=== PATIENT | female | born 1985 | race Caucasian/White ===

== ENCOUNTER → 2018-08-29 | Outpatient (CLI) | payer OTHER ==
[~2018-08-29] MED LIST: ADDE30CA3 PO; ALL10TAB28 PO; AMET1TAB4 PO; AMOX500C PO; CALCTAB6 PO; COQ1100C PO; FERR325T3 PO; METF500T13 PO; MONT10TA2 PO; MULT1TAB18 PO; OMEP20TA9 PO; PARO20TA4 PO; PRED20TA PO; PYRI100T2 PO; STOO100C PO; VITA100018 PO; VITA200016 PO
== END ==
LOC: M LAB 12:29
PROVIDERS: ATTEND Internal Medicine Gastroenterology
DX: D50.9 Iron deficiency anemia, unspecified (principal)

== ENCOUNTER 2018-10-21 10:35 | Day surgery (SDC) | payer OTHER ==
[~2018-10-21] VITALS: Ht 175.3 cm; Wt 93.3 kg
[~2018-10-21 10:35] MED LIST changes: +COQ150CH PO; +MM S100C PO; +MULT1TAB8 PO; +NS 1,000 ML IV ONE; -STOO100C PO
[2018-10-21] MEDS ORDERED: fentaNYL 100 MCG/2 ML INJECTION (J3010) As Ordered ONE (11:44)
[2018-10-21] MEDS ORDERED: LIDOCAINE 2% INJ 100 MG/5 ML SDV (FOR ANES.) As Ordered ONE (11:44)
[2018-10-21] MEDS ORDERED: PROPOFOL 500 MG/50 ML VIAL As Ordered ONE (11:44)
--- NOTE | 2018-10-21 11:57 | ROOR ---
Patient Name: Shey Skinner Procedure Date: 10/21/2018 11:41 AM Date of : 1985 Age: 32 Room: [facility] Gender: Female Note Status: Finalized Procedure: Upper GI endoscopy Indications: Iron deficiency anemia, Selective IgA deficiency Providers: Ezio CARRANZA MD Referring MD: Narcisa Conde Requesting Provider: Medicines: Monitored Anesthesia Care Complications: No immediate complications. Procedure: Pre-Anesthesia Assessment: - The heart rate, respiratory rate, oxygen saturations, blood pressure, adequacy of pulmonary ventilation, and response to care were monitored throughout the procedure. The Endoscope was introduced through the mouth, and advanced to the third part of duodenum. The upper GI endoscopy was accomplished without difficulty. The patient tolerated the procedure well. Findings: The esophagus was normal. The stomach was normal. The examined duodenum was normal. Biopsies for histology were taken with a cold forceps in the first portion of the duodenum, in the second portion of the duodenum and in the third portion of the duodenum for evaluation of celiac disease. Impression: - Normal esophagus. - Normal stomach. - Normal examined duodenum. - Biopsies were taken with a cold forceps for evaluation of celiac disease. Recommendation: - Await pathology results. - Telephone endoscopist for pathology results in 2 weeks. Ezio Carranza MD Ezio CARRANZA MD 10/21/2018 11:56:32 AM Electronically signed by Ezio CARRANZA MD Number of Addenda: 0 Note Initiated On: 10/21/2018 11:41 AM Estimated Blood Loss: Estimated blood loss: none.
--- NOTE | 2018-10-21 12:23 | ROOR ---
Patient Name: Shey Skinner Procedure Date: 10/21/2018 11:42 AM Date of : 1985 Age: 32 Room: [facility] Gender: Female Note Status: Finalized Procedure: Colonoscopy Indications: Iron deficiency anemia Providers: Ezio CARRANZA MD Referring MD: Narcisa Conde Requesting Provider: Medicines: Monitored Anesthesia Care Complications: No immediate complications. Procedure: Pre-Anesthesia Assessment: - The heart rate, respiratory rate, oxygen saturations, blood pressure, adequacy of pulmonary ventilation, and response to care were monitored throughout the procedure. The Colonoscope was introduced through the anus and advanced to 10 cm into the ileum. Findings: The perianal and digital rectal examinations were normal. A 5 mm polyp was found in the hepatic flexure. The polyp was sessile. The polyp was removed with a cold snare. Resection and retrieval were complete. Three sessile polyps were found in the sigmoid colon. The polyps were 3 to 4 mm in size. These polyps were removed with a cold snare. Resection and retrieval were complete. Retroflexion in the right colon was performed. The exam was otherwise normal throughout the examined colon. The terminal ileum appeared normal. Impression: - One 5 mm polyp at the hepatic flexure, removed with a cold snare. Resected and retrieved. - Three 3 to 4 mm polyps in the sigmoid colon, removed with a cold snare. Resected and retrieved. - Small internal hemorrhoids. - The colon is otherwise normal. - The terminal ileum was normal. Recommendation: - Await pathology results. - Telephone endoscopist for pathology results in 2 weeks. - If the pathology report reveals adenomatous tissue, then repeat the colonoscopy for surveillance in 3 - 5 years. - Return to referring physician as previously scheduled. Ezio Carranza MD Ezio CARRANZA MD 10/21/2018 12:23:17 PM Electronically signed by Ezio CARRANZA MD Number of Addenda: 0 Note Initiated On: 10/21/2018 11:42 AM Estimated Blood Loss: Estimated blood loss: none.
[2018-10-21 12:40] VITALS: BP 134/69
== END 2018-10-21 12:49 | disposition home or self-care (01) ==
LOC: M OPP 10:35
PROVIDERS: ATTEND Internal Medicine Gastroenterology
DX: D50.9 Iron deficiency anemia, unspecified (principal); D12.3 Benign neoplasm of transverse colon; D12.5 Benign neoplasm of sigmoid colon; D80.2 Selective deficiency of immunoglobulin A [IgA]; K62.5 Hemorrhage of anus and rectum; K64.8 Other hemorrhoids; F17.210 Nicotine dependence, cigarettes, uncomplicated; Z79.84 Long term (current) use of oral hypoglycemic drugs; Z79.899 Other long term (current) drug therapy; Z88.8 Allergy status to other drugs, medicaments and biological substances
CPT/HCPCS: 43239; 45385; 88305; J3010

== ENCOUNTER → 2019-04-11 | Outpatient (CLI) | payer OTHER ==
[~2019-04-11] MED LIST changes: -ALL10TAB28 PO; +ALL10TAB29 PO; -NS 1,000 ML IV ONE; -PYRI100T2 PO; +VITA100T82 PO
[2019-04-11 16:11] LABS: BASO % 0.4 % (0.0-1.0); EOS # 0.1 10^3/uL (0.0-0.5); EOS % 0.7 % (0.0-3.0); HEMATOCRIT 41.5 % (36.0-47.0); HEMOGLOBIN 13.7 g/dl (12.0-15.5); LYMPH # 2.8 10^3/uL (1.5-5.0); MEAN CORPUSCULAR HEMOGLOBIN 30.5 pg (27.0-33.0); MEAN CORPUSCULAR VOLUME 92.4 fl (80.0-96.0); MONO # 0.7 10^3/uL (0.0-0.8); MONO % 6.6 % (0.0-5.0); NEUTROPHILS % 65.5 % (36.0-66.0); PLATELET COUNT, AUTOMATED 301 10^3/uL (150-450); RED BLOOD COUNT 4.49 10^6/uL (4.00-5.40); WHITE BLOOD COUNT 10.7 10^3/uL (4.0-10.0)
[2019-04-11 17:33] LABS: CHLAMYDIA DNA AMPLIFICATION NEGATIVE (NEGATIVE); GC DNA AMPLIFICATION NEGATIVE (NEGATIVE)
[2019-04-14 10:22] LABS: HEPATITIS C VIRUS ABY INDEX 0.2 INDEX (<0.8); HIV 1&2 SCREEN CENTAUR NEGATIVE (NEGATIVE); RUBELLA IgG QUALITATIVE IMMUNE (IMMUNE)
== END ==
LOC: M PLALAB 12:09
PROVIDERS: ATTEND Specialist
DX: Z34.81 Encounter for supervision of other normal pregnancy, first trimester (principal)

== ENCOUNTER → 2019-06-07 | Outpatient (CLI) | payer OTHER ==
[~2019-06-07] MED LIST changes: -MONT10TA2 PO; +MONT10TA4 PO
--- NOTE | 2019-06-07 12:37 | REP ---
Obstetric ultrasound for anatomy: There is a single intrauterine gestation in a transverse lie with the head to the at right. There is movement and cardiac activity. The heart rate is 130 beats per minute. The placenta is anterior. There is no previa or abruptio. The placenta is grade 1. The amniotic fluid volume subjectively is normal. The cervix measures 3.1 cm. Gestational age by the ultrasound today is 18 weeks 3 days. The SHARRON is 11/05/2019. weight is 242 grams/0 pounds, 8 ounces. This is the 48 percentile for 18 weeks 3 days. The following anatomic structures are identified and are unremarkable: Cranium, choroid plexus, cavum septum pellucidum, cerebellum, nuchal fold, upper lip, cardiac right and left ventricular outflow tracts, diaphragm, stomach, cord insertion, three-vessel cord, kidneys, bladder, spine and upper lower extremities. Suboptimally demonstrated are the facial profile and the four-chamber view of the heart. A followup study dedicated to these structures might be considered. Otherwise, there are no anomalies. Electronically Signed by Brooks Quinonez MD 06/07/2019 12:28 P
== END ==
LOC: M WHC 09:11
PROVIDERS: ATTEND Advanced Practice Midwife
DX: Z34.82 Encounter for supervision of other normal pregnancy, second trimester (principal)

== ENCOUNTER → 2019-08-02 | Outpatient (REF) | payer OTHER ==
[2019-08-02 15:22] LABS: HEMATOCRIT 37.8 % (36.0-47.0); HEMOGLOBIN 12.7 g/dl (12.0-15.5); MEAN CORPUSCULAR HEMOGLOBIN 31.1 pg (27.0-33.0); MEAN CORPUSCULAR HGB CONC 33.6 g/dl (32.0-36.5); MEAN CORPUSCULAR VOLUME 92.6 fl (80.0-96.0); PLATELET COUNT, AUTOMATED 258 10^3/uL (150-450); RED BLOOD COUNT 4.08 10^6/uL (4.00-5.40); WHITE BLOOD COUNT 12.3 10^3/uL (4.0-10.0)
[2019-08-02 15:41] LABS: HEMOGLOBIN A1c 5.6 %
== END ==
LOC: M PLALAB 12:35
PROVIDERS: ATTEND Advanced Practice Midwife
DX: Z34.81 Encounter for supervision of other normal pregnancy, first trimester (principal)

== ENCOUNTER → 2019-08-02 | Outpatient (CLI) | payer OTHER ==
--- NOTE | 2019-08-02 18:01 | REP ---
Clinical: Anatomical evaluation. Comparison: 06/07/2019 . Findings: Examination demonstrates a single live intrauterine in cephalic presentation. motion is identified by technologist. Placenta is noted anterior and grade I without evidence for placenta previa or abruption. Amniotic fluid volume is normal. Cervix measures 3.0 cm in length and appears closed. No evidence for nuchal cord. Gestational age by LMP 26 weeks 3 days with SHARRON 11/05/2019 . Gestational age by current measurements 26 weeks 6 days with SHARRON 11/02/2019 . FHR equals 133 beats per minute. Estimated weight 1022 grams ( 59th percentile). Anatomical assessment demonstrates normal structures including cranium, choroid plexus, cavum, cerebellum/posterior fossa, facial features, lungs, four-chamber heart/ventricular outflow tracts, diaphragm, stomach, cord insertion/three-vessel cord, kidneys/bladder, spine, and extremities. Impression: Single live intrauterine in cephalic presentation demonstrating appropriate interval growth. Anatomical assessment is complete and normal. No gross abnormalities are identified.
== END ==
LOC: M WHC 07:27
PROVIDERS: ATTEND Advanced Practice Midwife
DX: Z34.82 Encounter for supervision of other normal pregnancy, second trimester (principal)

== ENCOUNTER → 2019-09-11 | Outpatient (CLI) | payer OTHER ==
--- NOTE | 2019-09-12 03:36 | REP ---
Clinical: Diabetes mellitus. Growth evaluation. Comparison: 08/02/2019 . Findings: Examination demonstrates a single live intrauterine in cephalic presentation. motion is identified by technologist. Placenta is noted anterior and grade I without evidence for placenta previa or abruption. Amniotic fluid volume is normal. Cervix measures 3.0 cm in length and appears closed. No evidence for nuchal cord. Gestational age by LMP 31 weeks 6 days with SHARRON 11/07/2019 . Gestational age by current measurements 33 weeks 5 days with SHARRON 10/25/2019 . FHR equals 139 beats per minute. Amniotic fluid index: 13.4 cm Estimated weight 2268 grams ( 83rd percentile). Impression: Single live advanced gestation in cephalic presentation. Growth maintained within normal limits.
== END ==
LOC: M WHC 10:42
PROVIDERS: ATTEND Nurse Practitioner Women's Health
DX: O24.113 Pre-existing type 2 diabetes mellitus, in pregnancy, third trimester (principal)

== ENCOUNTER → 2019-09-11 | Outpatient (REF) | payer OTHER ==
[2019-09-11 13:30] LABS: HEMATOCRIT 37.5 % (36.0-47.0); HEMOGLOBIN 11.9 g/dl (12.0-15.5); MEAN CORPUSCULAR HEMOGLOBIN 29.7 pg (27.0-33.0); MEAN CORPUSCULAR HGB CONC 31.7 g/dl (32.0-36.5); MEAN CORPUSCULAR VOLUME 93.5 fl (80.0-96.0); PLATELET COUNT, AUTOMATED 262 10^3/uL (150-450); RED BLOOD COUNT 4.01 10^6/uL (4.00-5.40); WHITE BLOOD COUNT 10.1 10^3/uL (4.0-10.0)
[2019-09-11 13:54] LABS: HEMOGLOBIN A1c 5.4 %
== END ==
LOC: M PLALAB 11:18
PROVIDERS: ATTEND Obstetrics & Gynecology
DX: Z34.83 Encounter for supervision of other normal pregnancy, third trimester (principal); Z3A.31 31 weeks gestation of pregnancy

== ENCOUNTER → 2019-10-04 | Outpatient (CLI) | payer OTHER ==
--- NOTE | 2019-10-04 13:00 | REP ---
REASON: Followup growth. Multiple ultrasonographic images of the gravid uterus show a single living intrauterine gestation in the cephalic presentation. Doppler interrogation of the heart shows a heart rate of 156 beats per minute. The placenta is anterior and not low lying. The subjective amniotic fluid volume is within normal limits. The cervix measures 3.1 cm in length and is closed. The calculated amniotic fluid index is 17.4 with an expected range of 7.9 to 24.9. BPD 9.3 cm = 37 weeks 4 days HC 32.5 cm = 36 weeks 5 days AC 33.0 cm = 36 weeks 6 days FL 6.9 cm = 35 weeks 3 days The estimated weight is 2973 grams which is at the 76th percentile for a 27-hqih-1-day gestational age. IMPRESSION: Single living intrauterine gestation as described above with an estimated gestational age of 36 weeks 0 days via a composite criteria and estimated date of delivery of 11/01/2019 by today's exam.
== END ==
LOC: M WHC 08:42
PROVIDERS: ATTEND Advanced Practice Midwife
DX: O24.319 Unspecified pre-existing diabetes mellitus in pregnancy, unspecified trimester (principal)

== ENCOUNTER → 2019-10-10 | Outpatient (REF) | payer OTHER | LOC: M SFHCWAGY 16:36 | PROVIDERS: ATTEND Advanced Practice Midwife | DX: Z34.93 Encounter for supervision of normal pregnancy, unspecified, third trimester (principal); Z3A.00 Weeks of gestation of pregnancy not specified ==

== ENCOUNTER 2019-10-28 14:31 | Inpatient (IN) | payer OTHER ==
[2019-10-28] VITALS (21 sets, daily range): BP systolic 104–147; BP diastolic 53–93
[~2019-10-28] VITALS: Ht 175.3 cm; Wt 98.0 kg
[~2019-10-28 14:31] MED LIST changes: -ALL10TAB29 PO; +CALC600T63 PO; -CALCTAB6 PO; +CETI-24 PO
[2019-10-28 15:30] LABS: HEMOGLOBIN 12.4 g/dl (12.0-15.5); MEAN CORPUSCULAR HEMOGLOBIN 30.6 pg (27.0-33.0); MEAN CORPUSCULAR HGB CONC 33.5 g/dl (32.0-36.5); MEAN CORPUSCULAR VOLUME 91.4 fl (80.0-96.0); PLATELET COUNT, AUTOMATED 296 10^3/uL (150-450); RED BLOOD COUNT 4.05 10^6/uL (4.00-5.40); WHITE BLOOD COUNT 11.1 10^3/uL (4.0-10.0)
[2019-10-28] MEDS ORDERED: LACTATED RINGER'S 1000 ML IV STA (16:07)
[2019-10-28] MEDS ORDERED: OXYTOCIN DRIP 30 UNITS in IV 1 EA IV SCH (16:30)
[2019-10-28] MEDS ORDERED: OXYTOCIN 30 UNITS IN 0.9% NaCl 500ML IV BAG (J2590) As Ordered ONE (16:31)
[2019-10-28] MEDS: LR 1,000 ML IV SCH ×2 (19:23→22:10)
[2019-10-28] MEDS ORDERED: FENTANYL 2MCG/ML ROPIVACAINE 0.2% IN 0.9% NACL 100ML IVBAG As Ordered ONE (21:53)
[2019-10-28] MEDS ORDERED: EPIDURAL COMMENT XX SCH (23:30)
[2019-10-28] MEDS ORDERED: LACTATED RINGER'S 1000 ML IV PRN (23:30)
[2019-10-28] MEDS ORDERED: ePHEDrine SULFATE 25 MG/5 ML(5MG/ML) SYRINGE IV PRN (23:30)
[2019-10-28] MEDS ORDERED: ONDANSETRON 4MG/2ML VIAL IV PRN (23:30)
[2019-10-28] MEDS ORDERED: REFRIGERATOR IV KEYS XX PRN (23:30)
[2019-10-28] MEDS ORDERED: diphenhydrAMINE 50MG/ML VIAL (J1200) IV PRN (23:30)
[2019-10-28] MEDS ORDERED: FENTANYL/ROPIVACAINE/NACL BAG 100 ML EPIDURAL SCH (23:30)
[2019-10-28] MEDS ORDERED: NALOXONE INJ 0.4MG/1ML VIAL (J2310 PER 1MG) IV PRN (23:30)
[2019-10-28] MEDS ORDERED: EPIDURAL/PCA KEYS XX PRN (23:30)
[2019-10-29] VITALS (15 sets, daily range): BP systolic 93–150; BP diastolic 51–83
[2019-10-29] MEDS ORDERED: OXYTOCIN DRIP 30 UNITS in IV 1 EA IV SCH (02:24)
[2019-10-29] MEDS ORDERED: LR 1,000 ML IV SCH (02:24)
[2019-10-29] MEDS ORDERED: PROMETHAZINE 25 MG TAB PO PRN (02:30)
[2019-10-29] MEDS ORDERED: ACETAMINOPHEN 500 MG TAB PO PRN (02:30)
[2019-10-29] MEDS ORDERED: ONDANSETRON 4MG/2ML VIAL IV PRN (02:30)
[2019-10-29] MEDS ORDERED: RHOGAM 300 MCG (1500 IU) INJ (J2790) IM SCH (02:30)
[2019-10-29] MEDS ORDERED: ACETAMINOPHEN TAB 650MG DOSE (2X325MG) PO PRN (02:30)
[2019-10-29] MEDS ORDERED: MEASLES,MUMPS,RUBELLA VACCINE INJ (MMR-II) (90707) SC SCH (02:30)
[2019-10-29] MEDS ORDERED: IBUPROFEN 600MG TAB PO PRN (02:30)
[2019-10-29] MEDS ORDERED: DIBUCAINE 1% OINTMENT 30GM TOP PRN (02:30)
[2019-10-29] MEDS ORDERED: DOCUSATE SODIUM 100 MG CAP PO PRN (02:30)
[2019-10-29] MEDS: IBUPROFEN 800 MG TAB PO PRN ×3 (06:09→22:19)
[2019-10-29] MEDS: PRENATAL VITAMINS CHEWABLE TABLET PO SCH (08:38)
[2019-10-29] MEDS: metFORMIN (GLUCOPHAGE) 500 MG TAB PO SCH ×2 (10:44→17:32)
[2019-10-29] MEDS: OMEPRAZOLE 20 MG CAP PO SCH (10:50)
[2019-10-30 06:00] VITALS: BP 111/62
[2019-10-30] MEDS: metFORMIN (GLUCOPHAGE) 500 MG TAB PO SCH (07:57)
[2019-10-30] MEDS: OMEPRAZOLE 20 MG CAP PO SCH (08:56)
[2019-10-30] MEDS: PRENATAL VITAMINS CHEWABLE TABLET PO SCH (08:56)
== END 2019-10-30 10:45 | disposition home or self-care (01) | DRG 560 ==
LOC: M LDI 14:31 → M OBS 10-29 11:51
PROVIDERS: ADMIT Obstetrics & Gynecology; ATTEND Obstetrics & Gynecology
PROC: 10907ZC Drainage of Amniotic Fluid, Therapeutic from Products of Conception, Via Natural or Artificial Opening (ICD-10-PCS; 2019-10-28)
PROC: 3E033VJ Introduction of Other Hormone into Peripheral Vein, Percutaneous Approach (ICD-10-PCS; 2019-10-28)
PROC: 10E0XZZ Delivery of Products of Conception, External Approach (ICD-10-PCS; principal; 2019-10-29)
PROC: 0HQ9XZZ Repair Perineum Skin, External Approach (ICD-10-PCS; 2019-10-29)
DX: O24.12 Pre-existing type 2 diabetes mellitus, in childbirth (principal); M35.03 Sjogren syndrome with myopathy; E11.9 Type 2 diabetes mellitus without complications; M79.7 Fibromyalgia; O26.893 Other specified pregnancy related conditions, third trimester; Z79.84 Long term (current) use of oral hypoglycemic drugs; O69.81X0 Labor and delivery complicated by cord around neck, without compression, not applicable or unspecified; O70.0 First degree perineal laceration during delivery; Z37.0 Single live birth; Z3A.38 38 weeks gestation of pregnancy

== ENCOUNTER → 2020-06-09 | Outpatient (CLI) | payer OTHER ==
[~2020-06-09] MED LIST changes: +ADDE10CA3 PO; +BCP PO; +MONT10TA10 PO; -MONT10TA4 PO
== END ==
LOC: M LABSMTC 08:55
PROVIDERS: ATTEND Anesthesiology
DX: Z01.812 Encounter for preprocedural laboratory examination (principal); Z20.822 Contact with and (suspected) exposure to COVID-19

== ENCOUNTER 2020-06-14 06:47 | Day surgery (SDC) | payer OTHER ==
[~2020-06-14] VITALS: Ht 175.3 cm; Wt 80.7 kg
[~2020-06-14 06:47] MED LIST changes: +NS 1,000 ML IV ONE
[2020-06-14] MEDS ORDERED: propofoL 200 MG/20 ML VIAL As Ordered ONE (07:18)
[2020-06-14] MEDS ORDERED: LIDOCAINE 2% 100MG/5ML SDV (FOR ANES.) As Ordered ONE (07:18)
--- NOTE | 2020-06-14 08:05 | ROOR ---
Patient Name: Shey Skinner Procedure Date: 06/14/2020 7:31 AM Date of : 1985 Age: 34 Room: [id number] Gender: Female Note Status: Finalized Procedure: Colonoscopy Indications: High risk colon cancer surveillance: Personal history of villous adenoma with dysplasia. Last colonoscopy: October 2018.(5-6 mm villous adenoma, "just short of high grade dysplasia" in the Hepatic flexure, Providers: Ezio ORTA MD Referring MD: Estuardo Johnson Requesting Provider: Medicines: Monitored Anesthesia Care Complications: No immediate complications. Procedure: Pre-Anesthesia Assessment: - The heart rate, respiratory rate, oxygen saturations, blood pressure, adequacy of pulmonary ventilation, and response to care were monitored throughout the procedure. The was introduced through the anus and advanced to the terminal ileum, with identification of the appendiceal orifice and IC valve. The colonoscopy was performed without difficulty. The patient tolerated the procedure well. The quality of the bowel preparation was good. Findings: The perianal and digital rectal examinations were normal. Two sessile polyps were found in the hepatic flexure. The polyps were 3 to 4 mm in size. These polyps were removed with a hot snare. Resection and retrieval were complete. Three hyperplastic polyps were found in the sigmoid colon. The polyps were diminutive in size. These polyps were removed with a hot snare. Resection and retrieval were complete. Retroflexion in the right colon was performed. Internal hemorrhoids were found during retroflexion. The hemorrhoids were small. The exam was otherwise without abnormality on direct and retroflexion views. Impression: - Two 3 to 4 mm polyps at the hepatic flexure, removed with a hot snare. Resected and retrieved. - Three diminutive hyperplastic appearing polyps in the sigmoid colon, removed with a hot snare. Resected and retrieved. - Internal hemorrhoids. - The examination was otherwise normal on direct and retroflexion views. Recommendation: - Repeat colonoscopy in 3 years for surveillance. Procedure Code(s): --- Professional --- 40431, Colonoscopy, flexible; with removal of tumor(s), polyp(s), or other lesion(s) by snare technique Diagnosis Code(s): --- Professional --- Z86.010, Personal history of colonic polyps K63.5, Polyp of colon K64.8, Other hemorrhoids CPT copyright 2019 [employer]. All rights reserved. The codes documented in this report are preliminary and upon disc pad knockout worker review may be revised to meet current compliance requirements. Ezio Orta MD Ezio ORTA MD 06/14/2020 8:06:20 AM Electronically signed by Ezio ORTA MD Number of Addenda: 0 Note Initiated On: 06/14/2020 7:31 AM Estimated Blood Loss: Estimated blood loss: none.
[2020-06-14 08:20] VITALS: BP 107/63
== END 2020-06-14 08:58 | disposition home or self-care (01) ==
LOC: M OPP 06:47
PROVIDERS: ATTEND Internal Medicine Gastroenterology
DX: Z12.11 Encounter for screening for malignant neoplasm of colon (principal); Z86.010 Personal history of colon polyps; K63.5 Polyp of colon; K64.8 Other hemorrhoids; F17.210 Nicotine dependence, cigarettes, uncomplicated; E11.9 Type 2 diabetes mellitus without complications; Z79.899 Other long term (current) drug therapy; Z79.84 Long term (current) use of oral hypoglycemic drugs; Z88.8 Allergy status to other drugs, medicaments and biological substances

== ENCOUNTER → 2023-06-16 | Outpatient (CLI) | payer OTHER ==
[~2023-06-16] MED LIST changes: +GASTROGRAFIN SOLUTION 30ML As Ordered ONE; +ISOVUE-370 76% 100ML VIAL As Ordered ONE; -MONT10TA10 PO; +MONT10TA97 PO; -NS 1,000 ML IV ONE; +OMEP20TA2 PO; -OMEP20TA9 PO
== END ==
LOC: M RAD 11:08
PROVIDERS: ATTEND Physician Assistant Medical
DX: R10.11 Right upper quadrant pain (principal)
CPT/HCPCS: 74177; Q9963; Q9967

== ENCOUNTER 2023-07-28 11:05 | Day surgery (SDC) | payer OTHER ==
[~2023-07-28] VITALS: Ht 175.3 cm; Wt 81.6 kg
[~2023-07-28 11:05] MED LIST changes: +BUSP1TAB PO; +CYAN500T20 PO; +FERR1TAB8 PO; -GASTROGRAFIN SOLUTION 30ML As Ordered ONE; -ISOVUE-370 76% 100ML VIAL As Ordered ONE; +VITA100093 PO
[2023-07-28] MEDS: NS 1,000 ML IV ONE (11:23)
[2023-07-28] MEDS ORDERED: fentaNYL 100 MCG/2 ML INJECTION As Ordered ONE (13:16)
[2023-07-28] MEDS ORDERED: LIDOCAINE 2% 100MG/5ML SDV (FOR ANES.) As Ordered ONE (13:17)
[2023-07-28] MEDS ORDERED: propofoL 200 MG/20 ML VIAL As Ordered ONE (13:17)
[2023-07-28 14:05] VITALS: BP 124/68; O2SAT 100
== END 2023-07-28 14:15 | disposition home or self-care (01) ==
LOC: M OPP 11:05
PROVIDERS: ATTEND Internal Medicine Gastroenterology
DX: Z12.11 Encounter for screening for malignant neoplasm of colon (principal); Z86.010 Personal history of colon polyps; D12.5 Benign neoplasm of sigmoid colon; K64.8 Other hemorrhoids; K57.30 Diverticulosis of large intestine without perforation or abscess without bleeding; K44.9 Diaphragmatic hernia without obstruction or gangrene; R12 Heartburn; D50.9 Iron deficiency anemia, unspecified; R10.84 Generalized abdominal pain; R07.9 Chest pain, unspecified; E11.9 Type 2 diabetes mellitus without complications; F17.200 Nicotine dependence, unspecified, uncomplicated; Z79.84 Long term (current) use of oral hypoglycemic drugs; Z79.899 Other long term (current) drug therapy; Z88.8 Allergy status to other drugs, medicaments and biological substances
CPT/HCPCS: 43235; 45385; 88305; J3010

== ENCOUNTER → 2023-08-04 | Outpatient (REF) | payer OTHER | LOC: M CFLAB 12:50 | PROVIDERS: ATTEND Physician Assistant | DX: Z12.4 Encounter for screening for malignant neoplasm of cervix (principal) ==

== ENCOUNTER → 2024-08-21 | Outpatient (REF) ==
[~2024-08-21] MED LIST changes: +OMEP-611 PO; -OMEP20TA2 PO
== END ==
LOC: M SLEEP HO 11:00
PROVIDERS: ATTEND Physician Assistant
DX: G47.33 Obstructive sleep apnea (adult) (pediatric) (principal)